=== PATIENT | female | born 1940 | race Caucasian/White ===

== ENCOUNTER 2019-08-08 11:23 | Day surgery (SDC) | payer MEDICARE, OTHER ==
[2019-08-01 09:47] LABS: ABSOLUTE EOSINOPHILS # (AUTO) 0.3 10^3/uL (0.0-0.6); ABSOLUTE LYMPHOCYTES (AUTO) 2.1 10^3/uL (0.5-4.7); ABSOLUTE MONOCYTES (AUTO) 0.9 10^3/uL (0.1-1.4); ABSOLUTE NEUT (AUTO) 4.3 10^3/uL (1.7-8.2); BASOPHILS % (AUTO) 0.4 % (0-2); EOSINOPHILS % (AUTO) 3.6 % (0-6); HEMATOCRIT 36.2 % (36.0-47.0); HEMOGLOBIN 12.4 g/dL (12.0-15.5); LYMPHOCYTES % (AUTO) 27.9 % (13-45); MEAN CORPUSCULAR HEMOGLOBIN 30.8 pg (27.0-33.4); MEAN CORPUSCULAR HGB CONC 34.3 g/dL (32.0-36.0); MEAN CORPUSCULAR VOLUME 90 fl (80-97); MONOCYTES % (AUTO) 12.2 % (3-13); PLATELET COUNT 180 10^3/uL (150-450); RED BLOOD COUNT 4.02 10^6/uL (3.72-5.28); RED CELL DISTRIBUTION WIDTH 14.9 % (11.5-14.0); SEGMENTED NEUTROPHILS % (AUTO) 55.9 % (42-78); TOTAL CELLS COUNTED % (AUTO) 100 %; WHITE BLOOD COUNT 7.6 10^3/uL (4.0-10.5)
[2019-08-01 10:01] LABS: INTERNATIONAL RATION (INR) 1.04; PROTHROMBIN TIME 13.6 SEC (11.4-15.4)
[2019-08-01 10:02] LABS: PARTIAL THROMBOPLASTIN TIME 28.1 SEC (23.5-35.8)
[2019-08-01 10:06] LABS: APPEARANCE,URINE CLEAR; BILIRUBIN,URINE NEGATIVE (NEGATIVE); COLOR,URINE STRAW; GLUCOSE, URINE NEGATIVE (NEGATIVE); KETONES,URINE NEGATIVE (NEGATIVE); LEUKOCYTE ESTERASE,URINE NEGATIVE (NEGATIVE); NITRITE,URINE NEGATIVE (NEGATIVE); PROTEIN,URINE NEGATIVE (NEGATIVE); URINE SPECIFIC GRAVITY 1.008; UROBILINOGEN,URINE NEGATIVE mg/dL (<2.0)
--- NOTE | 2019-08-01 13:32 | EKG REPORT ---
SEVERITY:- BORDERLINE ECG - SINUS RHYTHM LOW VOLTAGE THROUGHOUT : Confirmed by: Kulwinder Ireland MD 01-Aug-2019 13:31:10
[~2019-08-08 11:23] MED LIST: CEFAZOLIN SODIUM 1 GM in DEXTROSE 5%-WATER 50 ML IV PRN; LIDOCAINE 1% INJ-PF (10 MG/ML) 30 ML SDV ONE; NORMAL SALINE 1000 ML (RENAL PATIENTS) IV PRN; TRIAMCINOLONE ACETONIDE INJ 40 MG/1 ML VIAL ONE
[2019-08-08] MEDS ORDERED: FENTANYL CITRATE INJ/PF 100 MCG/2 ML AMPUL ONE (13:14)
[2019-08-08] MEDS ORDERED: MIDAZOLAM 2 MG/2 ML INJ ONE (13:14)
[2019-08-08] MEDS ORDERED: PROPOFOL INJ 200 MG/20 ML VIAL IV ONE (13:14)
[2019-08-08] MEDS ORDERED: LIDOCAINE 1% INJ (10 MG/ML) 10 ML MDV INJ ONE ×2 (13:55)
[2019-08-08] MEDS ORDERED: TRIAMCINOLONE ACETONIDE INJ 40 MG/1 ML VIAL INJ ONE (14:25)
--- NOTE | 2019-08-08 14:45 | Operative Report ---
Operative Report DATE OF SURGERY: 08/08/19 PREOPERATIVE DIAGNOSIS: lumbar spinal stenosis with neurogenic claudication POSTOPERATIVE DIAGNOSIS: Same OPERATION: Minimally invasive lumbar decompression at L4-L5 SURGEON: TERRI PAVON ANESTHESIA: Moderate Sedation TISSUE REMOVED OR ALTERED: Portions of ligamentum flavum were removed and discarded COMPLICATIONS: None ESTIMATED BLOOD LOSS: None INTRAOPERATIVE FINDINGS: Improved epidural spread of contrast agent following decompression PROCEDURE: Date of Surgery: August 08, 2019 Preoperative Diagnosis: lumbar spinal stenosis with neurogenic claudication Postoperative Diagnosis:Same Procedure: Minimally invasive lumbar decompression at L4-L5 Surgeon: Terri Pavon MD Anesthesia: MAC Complications: None Procedure Detail: After obtaining informed consent and advising the patient of the risks and benefits, including serious neurological injury, bleeding and infection, allergic reaction and , the patient was taken to the operating room. The patient was placed comfortably in the prone position. Comfort was assessed visually and verbally. The patient was then prepped with chlorhexidine with a suitable drying time prior to draping. The patient was draped using an Ioban drape. A C arm was also sterilely draped into the field. The L4-L5 interspace was visualized. The skin overlying planned epidural insertion site was anesthetized with 1% plain lidocaine using a 25-gauge needle. Then a 17-gauge Touhy was advanced to the L4-L5 interspace using intermittent AP and oblique fluoroscopy and a bzhb-zo-yntllhtdfs technique to normal saline. Fhwe-od-fjbpznglsz was obtained at 9 cm. 2 mL of Omnipaque 180 solution was injected through the Touhy needle and posterior epidural spread confirmed. Attention was then turned to the planned incision sites caudad and lateral to the needle placement site. Skin overlying planned incision site was anesthetized with 1% lidocaine. Deeper tissues were infiltrated using a 25 gauge 3.5 inch needle. Then incision was made with a 15 blade scalpel. A trocar provided by the [employer] kit was advanced under intermittent AP and oblique angle fluoroscopic guidance to the L4-L5 interspace. Once adequate placement was noted the stabilizer device was placed over the trocar. A depth g auge was set at 15 mm and placed over the trocar after the introducer was removed. Subsequently a bone rongeur was advanced under continuous fluoroscopic guidance in a contralateral oblique anbulation and portions of the superior lamina of L5 and inferior lamina of L4 were scraped using the bone rongeur. The tissue was discarded. Then a tissue sculptor was advanced under continuous fluoroscopic guidance through the rongeur to remove further segments of the ligamentum flavum. Following this improvement in the posterior epidural spread of contrast was noted. Attention was turned to the opposite side with the procedure was performed in identical fashion. The conclusion of the procedure the trocar was removed. 80 mg of Kenalog was injected through the Touhy needle and then the needle was removed. The skin was closed using Steri-Strips. When this was dry, suitable tegaderm sponge dressing was placed. The patient was then taken back to PACU for postoperative care and monitoring.
[2019-08-08] MEDS ORDERED: OXYCODONE-ACETAMINOPHEN 5-325 MG TABLET PO PRN (14:49)
[2019-08-08] MEDS ORDERED: ONDANSETRON HCL INJ/PF 4 MG/2 ML SDV IV PRN (14:49)
--- NOTE | 2019-08-08 15:11 | RADIOLOGY REPORT (SQ) ---
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 FLUOROSCOPY TIME: 5.1 minutes. 6 images saved to PACS. TECHNIQUE: Intra-operative images acquired during surgical procedure to evaluate progress. NUMBER OF IMAGES: 6 images. LIMITATIONS: None. FINDINGS: Images of the lumbar spine acquired during the procedure. IMPRESSION: IMAGE(S) OBTAINED DURING PROCEDURE. COMMENT: Quality ID 145: Final reports for procedures using fluoroscopy that document radiation exp osure indices, or exposure time and number of fluorographic images (if radiation exposure indices are not available) Please consult full operative report of the attending physician for description of the procedure. TECHNICAL DOCUMENTATION: JOB ID: [id number] [employer]- All Rights Reserved Reading location - IP/workstation name: [email or web address]
--- NOTE | 2019-08-08 15:11 | RADIOLOGY REPORT (SQ) ---
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 FLUOROSCOPY TIME: 5.1 minutes. 6 images saved to PACS. TECHNIQUE: Intra-operative images acquired during surgical procedure to evaluate progress. NUMBER OF IMAGES: 6 images. LIMITATIONS: None. FINDINGS: Images of the lumbar spine acquired during the procedure. IMPRESSION: IMAGE(S) OBTAINED DURING PROCEDURE. COMMENT: Quality ID 145: Final reports for procedures using fluoroscopy that document radiation exp osure indices, or exposure time and number of fluorographic images (if radiation exposure indices are not available) Please consult full operative report of the attending physician for description of the procedure. TECHNICAL DOCUMENTATION: JOB ID: [id number] [employer]- All Rights Reserved Reading location - IP/workstation name: [email or web address]
[2019-08-08] MEDS ORDERED: OXYCODONE-ACETAMINOPHEN 5-325 MG TABLET ONE (15:20)
[2019-08-08 16:44] VITALS: BP 112/58
== END 2019-08-08 16:25 | disposition home or self-care (01) ==
LOC: OROUT 11:23
PROVIDERS: ATTEND Pain Medicine Interventional Pain Medicine
DX: M48.061 Spinal stenosis, lumbar region without neurogenic claudication (principal); Z00.6 Encounter for examination for normal comparison and control in clinical research program; M51.36 Other intervertebral disc degeneration, lumbar region; I10 Essential (primary) hypertension; J45.909 Unspecified asthma, uncomplicated; E07.9 Disorder of thyroid, unspecified; Z79.899 Other long term (current) drug therapy; Z79.01 Long term (current) use of anticoagulants; Z79.02 Long term (current) use of antithrombotics/antiplatelets; Z79.84 Long term (current) use of oral hypoglycemic drugs; Z79.891 Long term (current) use of opiate analgesic
CPT/HCPCS: 0275T; 93005; 36415; 82962; 85025; 85610; 85730; 81001; 72100; 93010; 00630; C1889; J2250; J0690; J3010; J3490; A9270; J3301; J7060; J2704; 630